=== PATIENT | male | born 1995 | race Two or more races ===

== ENCOUNTER 2022-02-05 21:12 | Emergency (ER) | payer BC ==
[~2022-02-05] VITALS: Ht 177.8 cm; Wt 68.0 kg
--- NOTE | 2022-02-05 22:00 | NUR ---
TO ER BED 10. BIBSELF C/O MUSCLE CRAMPS AND EZ HIP CRAMPS AFTER PLAYING SPORTS. PT IS ALERT AND ORIENETED. RR EVEN AND NON LABORED. CONNECTED TO MONITOR. AWAITING MD NERI
--- NOTE | 2022-02-05 22:45 | NUR ---
LAB AT BEDSIDE
--- NOTE | 2022-02-05 23:00 | NUR ---
urine collected and sent to lab.
[2022-02-05 23:14] LABS: BASOPHILS % (AUTO) 0.3 % (0.0-2.0); EOSINOPHILS % (AUTO) 0.5 % (0.0-6.0); HEMATOCRIT 49 % (39-51); HEMOGLOBIN 16.4 g/dL (13.5-17.5); LYMPHOCYTES # (AUTO) 1.9 K/uL (0.8-4.8); LYMPHOCYTES % (AUTO) 20.4 % (20.0-44.0); MEAN CORPUSCULAR HGB CONC 34 g/dl (31.0-36.0); MEAN CORPUSCULAR VOLUME 92 fL (80-96); MONOCYTES # (AUTO) 0.5 K/uL (0.1-1.30); MONOCYTES % (AUTO) 5.7 % (2.0-12.0); NEUTROPHILS # (AUTO) 6.7 K/uL (1.8-8.9); NEUTROPHILS % (AUTO) 73.1 % (43.0-81.0); PLATELET COUNT (AUTO) 185 K/uL (150-450); RED BLOOD CELL COUNT(AUTO) 5.34 MIL/uL (4.5-6.0); WHITE BLOOD COUNT (AUTO) 9.1 K/uL (4.3-11.0)
[2022-02-05 23:16] LABS: CALCIUM, SERUM 9.5 mg/dL (8.5-10.1); CARBON DIOXIDE 29 mmol/L (21-32); CHLORIDE 103 mmol/L (98-107); CREATININE 1.2 mg/dL (0.6-1.3); GLUCOSE 82 mg/dL (74-106); SODIUM SERUM 137 mmol/L (136-145); UREA NITROGEN, BLOOD 15 mg/dL (7-18)
[2022-02-05 23:40] LABS: CREATINE KINASE, TOTAL > 1000 U/L (39-308)
[2022-02-05 23:57] LABS: BILIRUBIN,URINE NEGATIVE (NEGATIVE); COLOR,URINE DARK YELLOW (YELLOW); LEUKOCYTE ESTERASE ,URINE NEGATIVE (NEGATIVE); NITRITE, URINE NEGATIVE (NEGATIVE); PH,URINE 6.5 (5.0-8.0); PROTEIN,URINE 100 mg/dl (NEGATIVE); UGLUCOSE NEGATIVE (NEGATIVE); UROBILINOGEN,URINE 0.2 EU/dL (0.2)
[2022-02-06 00:17] LABS: BACTERIA,URINE Rare /HPF (None Seen); COARSE GRANULAR CASTS,URINE Many /LPF (None Seen); SQUAMOUS EPITHELIAL CELL,UR Moderate /HPF (None Seen); WBC,URINE 0-2 /HPF (0-3)
--- NOTE | 2022-02-06 02:04 | NUR ---
RECEIVED A CALL FROM [facility] (LAB) PT [facility] IS (>1000) THEY CANNOT GIVE THE ACTUAL NUMBER UNTIL THEY SEND OUT THE SAMPLE FOR [facility]. DR GILBERT MADE AWARE.
--- NOTE | 2022-02-06 03:58 | NUR ---
IV LINE ESTABLISHED, [id number]
[2022-02-06 04:00] VITALS: BP 134/70
[2022-02-06] MEDS ORDERED: IV NS 0.9% 1,000 ML BAG IV ONE (04:00)
--- NOTE | 2022-02-06 04:27 | NUR ---
Patient does not wish to proceed with medical care recommended by Dr. Dodd. Patient given information related to possible complications, up to and including , which could occur as a result of leaving the hospital at this time. Patient verbalizes understanding of risks involved due to leaving against medical advice. Patient has signed AMA form.
== END 2022-02-06 04:44 | disposition left against medical advice (07) ==
LOC: ER 22:10
DX: M62.82 Rhabdomyolysis (principal); Z60.2 Problems related to living alone
CPT/HCPCS: 99283; 85025; 80048; 82550 ×2; 81001; 36415 ×2; 82553; 96360; J7030